=== PATIENT | male | born 1975 | race Caucasian/White ===

== ENCOUNTER 2017-06-05 16:53 | Inpatient (IN) | payer BC ==
[~2017-06-05] VITALS: Ht 177.8 cm; Wt 86.2 kg
[2017-06-05 18:09] LABS: BASOPHILS 0.2 % (0-2); EOSINOPHILS 1.7 % (0-7); HEMATOCRIT 41.8 % (42.0-54.0); HEMOGLOBIN 14.4 g/dL (13.5-17.5); IMMATURE GRANULOCYTES 0.2 % (0-5); LYMPHOCYTES 25.8 % (15-50); MCH 30.2 pg (26.0-34.0); MCHC 34.4 g/dL (31.0-37.0); MCV 87.6 fL (80.0-100.0); MONOCYTES 9.6 % (2-11); NEUTROPHILS 62.5 % (40-80); PLATELET COUNT 310 10x3/uL (130-400); RBC 4.77 10x6/uL (4.20-6.10); RDW 12.7 % (11.5-14.5); WBC 8.8 10x3/uL (4.8-10.8)
[2017-06-05 18:35] LABS: ALBUMIN 3.8 g/dL (3.4-5.0); BILIRUBIN - TOTAL 0.37 mg/dL (0.2-1.3); CALCIUM 9.2 mg/dL (8.5-10.1); CARBON DIOXIDE 23.8 mmol/L (21.0-32.0); CREATININE - SERUM 1.3 mg/dL (0.6-1.3); POTASSIUM - SERUM 3.8 mmol/L (3.5-5.1); PROTEIN - SERUM 6.7 g/dL (6.4-8.2)
[2017-06-05] MEDS ORDERED: HUMIRA20 MG/0.4 SQ (18:46)
[2017-06-05] MEDS ORDERED: MIRAPEX0.75 MG PO (18:51)
[2017-06-05 20:59] VITALS: BP 106/59
[2017-06-06] VITALS (7 sets, daily range): BP systolic 95–111; BP diastolic 45–62; BMI 26.6
[2017-06-07 00:18] VITALS: BP 107/62
[2017-06-07 05:48] VITALS: BP 106/54
[2017-06-07 06:04] LABS: BASOPHILS 0.2 % (0-2); EOSINOPHILS 0 % (0-7); HEMATOCRIT 42.9 % (42.0-54.0); HEMOGLOBIN 14.2 g/dL (13.5-17.5); IMMATURE GRANULOCYTES 0.3 % (0-5); LYMPHOCYTES 12.2 % (15-50); MCH 29.6 pg (26.0-34.0); MCHC 33.1 g/dL (31.0-37.0); MCV 89.4 fL (80.0-100.0); MEAN PLATELET VOLUME 9.9 fL (7.4-10.4); MONOCYTES 0.9 % (2-11); NEUTROPHILS 86.4 % (40-80); PLATELET COUNT 338 10x3/uL (130-400); RDW 13.1 % (11.5-14.5)
[2017-06-07 06:05] LABS: WBC 6.4 10x3/uL (4.8-10.8)
[2017-06-07 06:27] LABS: CALCIUM 8.5 mg/dL (8.5-10.1); CARBON DIOXIDE 21.9 mmol/L (21.0-32.0); CHLORIDE - SERUM 107 mmol/L (98-107); CREATININE - SERUM 1.1 mg/dL (0.6-1.3); MAGNESIUM - SERUM 1.9 mg/dL (1.8-2.4); PRE-ALBUMIN 34.1 mg/dL (18.0-35.7); SODIUM 139 mmol/L (136-145); eGFR NON AFRICAN AMERICAN 79 mL/min (90-120)
[2017-06-07 06:30] LABS: CALC OSMOLALITY 279 mosm/kg (275-300); GLUCOSE 196 mg/dL (74-106); POTASSIUM - SERUM 4.5 mmol/L (3.5-5.1); UREA NITROGEN 4 mg/dL (7-18)
[2017-06-07 09:08] VITALS: BP 113/55
[2017-06-07 11:50] VITALS: Ht 177.8 cm; Wt 86.2 kg
[2017-06-07 11:52] VITALS: BP 142/58
[2017-06-07 16:32] VITALS: BP 119/59
[2017-06-07 20:00] VITALS: BP 106/54
[2017-06-08 04:00] VITALS: BP 107/50
[2017-06-08 06:44] LABS: BASOPHILS 0 % (0-2); EOSINOPHILS 0 % (0-7); HEMATOCRIT 38.5 % (42.0-54.0); HEMOGLOBIN 12.6 g/dL (13.5-17.5); IMMATURE GRANULOCYTES 0.3 % (0-5); LYMPHOCYTES 6.5 % (15-50); MCH 29.5 pg (26.0-34.0); MCHC 32.7 g/dL (31.0-37.0); MCV 90.2 fL (80.0-100.0); MEAN PLATELET VOLUME 10.3 fL (7.4-10.4); MONOCYTES 5.7 % (2-11); NEUTROPHILS 87.5 % (40-80); PLATELET COUNT 335 10x3/uL (130-400); RBC 4.27 10x6/uL (4.20-6.10); RDW 13.5 % (11.5-14.5); WBC 11.9 10x3/uL (4.8-10.8)
[2017-06-08 06:56] LABS: CALC OSMOLALITY 279 mosm/kg (275-300); CALCIUM 8.5 mg/dL (8.5-10.1); CARBON DIOXIDE 24.1 mmol/L (21.0-32.0); CHLORIDE - SERUM 107 mmol/L (98-107); CREATININE - SERUM 0.9 mg/dL (0.6-1.3); GLUCOSE 156 mg/dL (74-106); POTASSIUM - SERUM 3.9 mmol/L (3.5-5.1); SODIUM 140 mmol/L (136-145); eGFR NON AFRICAN AMERICAN > 90 mL/min (90-120)
[2017-06-08 07:01] LABS: UREA NITROGEN 7 mg/dL (7-18)
[2017-06-08 08:59] VITALS: BP 107/49
[2017-06-08 13:10] VITALS: BP 112/56
[2017-06-08 15:55] VITALS: BP 124/55
[2017-06-08 22:47] VITALS: BP 126/60
[2017-06-09 01:33] VITALS: BP 133/61
[2017-06-09 05:53] VITALS: BP 119/54
[2017-06-09 06:54] LABS: BASOPHILS 0 % (0-2); EOSINOPHILS 0 % (0-7); HEMATOCRIT 40.4 % (42.0-54.0); HEMOGLOBIN 13.1 g/dL (13.5-17.5); LYMPHOCYTES 7.5 % (15-50); MCH 29.2 pg (26.0-34.0); MCHC 32.4 g/dL (31.0-37.0); MCV 90.2 fL (80.0-100.0); MEAN PLATELET VOLUME 9.9 fL (7.4-10.4); MONOCYTES 6.2 % (2-11); NEUTROPHILS 85.3 % (40-80); PLATELET COUNT 358 10x3/uL (130-400); RBC 4.48 10x6/uL (4.20-6.10); RDW 13.8 % (11.5-14.5); WBC 13.4 10x3/uL (4.8-10.8)
[2017-06-09 07:11] LABS: CALC OSMOLALITY 282 mosm/kg (275-300); CALCIUM 8.4 mg/dL (8.5-10.1); CARBON DIOXIDE 24.8 mmol/L (21.0-32.0); CHLORIDE - SERUM 108 mmol/L (98-107); CREATININE - SERUM 0.9 mg/dL (0.6-1.3); GLUCOSE 137 mg/dL (74-106); POTASSIUM - SERUM 3.9 mmol/L (3.5-5.1); SODIUM 142 mmol/L (136-145); UREA NITROGEN 7 mg/dL (7-18); eGFR NON AFRICAN AMERICAN > 90 mL/min (90-120)
[2017-06-09 08:07] VITALS: BP 102/44
[2017-06-09] MEDS ORDERED: ALBUTEROL2.5 MG/3 M UPD (11:10)
[2017-06-09] MEDS ORDERED: PROVENTIL HFA6.7 GM INH (11:11)
[2017-06-09] MEDS ORDERED: BREO ELLIPTA 21 EACH IH (11:12)
[2017-06-09] MEDS ORDERED: MUCINEX DM ER1 EAC1 PO (11:13)
[2017-06-09] MEDS ORDERED: PREDNISONE20 MG PO (11:13)
[2017-06-09] MEDS ORDERED: BENZONATATE200 MG PO (11:14)
[2017-06-09] MEDS ORDERED: OMNICEF300 MG PO (11:15)
[2017-06-09] MEDS ORDERED: FLUTICASONE PRO16 GM NASAL (11:16)
[2017-06-09 11:28] VITALS: BP 112/49
== END 2017-06-09 13:47 | disposition home or self-care (01) | DRG 178 ==
LOC: D.M2 16:53 → OBSVTIME 16:54 → D.M2 06-07 16:33
PROVIDERS: Internal Medicine Nephrology
DX: J15.6 Pneumonia due to other Gram-negative bacteria (principal); J45.901 Unspecified asthma with (acute) exacerbation; K51.90 Ulcerative colitis, unspecified, without complications; G47.33 Obstructive sleep apnea (adult) (pediatric); J15.212 Pneumonia due to Methicillin resistant Staphylococcus aureus; J13 Pneumonia due to Streptococcus pneumoniae; Z72.0 Tobacco use